=== PATIENT | female | born 1995 ===

== ENCOUNTER 2018-11-05 09:29 | Inpatient (IN) ==
[2018-11-05] MEDS ORDERED: ONDANSETRON 4 MG/2 ML VIAL IV PRN ×2 (09:50→11:36)
[2018-11-05] MEDS ORDERED: MEPERIDINE 50 MG/1 ML VIAL IV PRN (09:50)
[2018-11-05] MEDS ORDERED: LACTATED RINGERS 500 ML IV PRN (09:50)
[2018-11-05] MEDS ORDERED: LACTATED RINGERS 1,000 ML IV SCH (10:00)
[2018-11-05] MEDS ORDERED: ceFAZolin 2,000 MG in PREMIX 1 EACH IV ONE (10:02)
[2018-11-05 10:24] LABS: Basophils % 0.3 % (0.0-0.8); Eosinophils % 0.2 % (0.00-10.9); Hematocrit 37.8 VOL% (35.7-47.0); Hemoglobin 12.2 GM/DL (12.0-16.0); Immature Granulocytes % 0.8 %; Lymphocytes # 1.8 10*3/uL (1.4-4.0); Lymphocytes % 14.2 % (21.3-54.2); Mean Corpuscular HGB Conc 32.3 GM/DL (32-36); Mean Corpuscular Hemoglobin 28 PG (27-34); Mean Corpuscular Volume 87.9 FL (87-102); Mean Platelet Volume 9.9 FL (9.6-12.0); Monocytes # 0.6 10*3/uL (0.11-0.8); Monocytes % 4.8 % (1.7-12.7); Neutrophils # 9.9 10*3/uL (1.4-7.4); Neutrophils % 79.7 % (38.7-73.9); Platelet Count 219 T/CUMM (130-400); Red Cell Distribution Width 15.4 % (9.3-17.3); White Blood Count 12.5 T/CUMM (4-12)
[2018-11-05] MEDS ORDERED: OXYTOCIN 10 UNIT/ML VIAL IM ONE ×2 (10:28→10:45)
[2018-11-05] MEDS ORDERED: hydrOXYzine HCL 25 MG/1 ML VIAL IM PRN (10:28)
[2018-11-05] MEDS ORDERED: CITRIC ACID/SODIUM CITRATE 30 ML UDCUP PO ONE (10:28)
[2018-11-05] MEDS ORDERED: diphenhydrAMINE 50 MG/1 ML VIAL IV PRN (10:28)
[2018-11-05] MEDS ORDERED: PROMETHAZINE 25 MG/1 ML VIAL IM PRN (10:28)
[2018-11-05] MEDS ORDERED: OXYTOCIN/LR 30 UNIT/1,000 ML BAG IV ONE (10:28)
[2018-11-05] MEDS ORDERED: FAMOTIDINE 20 MG/2 ML VIAL IV ONE (10:28)
[2018-11-05] MEDS ORDERED: PHENYLEPHRINE 1 MG/10 ML SYRINGE IV ONE (10:30)
[2018-11-05] MEDS ORDERED: BUPIVACAINE SPINAL 0.75% 2 ML AMP SPINAL ONE (10:31)
[2018-11-05 10:45] LABS: Alanine Aminotransferase 9 U/L (13-56); Albumin 2.3 G/DL (3.4-5.0); Alkaline Phosphatase 120 U/L (45-117); Aspartate Amino Transferase 11 U/L (0-37); Bilirubin,Total < 0.39 MG/DL (0.2-1.0); Blood Urea Nitrogen 8 MG/DL (7-18); Calcium 8.7 MG/DL (8.5-10.1); Glucose 94 MG/DL (74-106); Osmolality,Calculated 274.5 MOS/KG (273-304); Potassium 4.3 MMOL/L (3.5-5.1); Sodium 139 MMOL/L (136-145); Total Protein 6.7 G/DL (6.4-8.3)
[2018-11-05 11:30] LABS: Cord Arterial Blood HCO3 19.3 MMOL/L
[2018-11-05 11:31] LABS: Cord Venous Blood HCO3 25.4 MMOL/L; Cord Venous Blood PCO2 60.8 MMHG
[2018-11-05 11:32] LABS: Cord Venous Blood PO2 11.6 MMHG
[2018-11-05 11:35] LABS: Apearance,Urine CLEAR (Clear); Bilirubin,Urine Negative (Negative); Blood, Urine Negative (Negative); Glucose,Urine (UA) Negative (Negative); Ketones,Urine 5 mg/dL (Negative); Mucus,Urine Occasional /LPF (Occasional); Nitrite,Urine Negative (Negative); Protein,Urine Negative; RBC,Urine <1 /HPF (0-4); Squamous Epithelial Cell,Urine Occasional /HPF (0-10); Urine Color Yellow (Yellow); Urine Specific Gravity 1.014 (1.001-1.035); Urine Urobilinogen < 2.0 EU/DL (0.2-1.0); WBC,Urine <1 /HPF (0-6)
[2018-11-05] MEDS ORDERED: MAGNESIUM HYDROXIDE SUSP 30 ML UDCUP PO PRN (11:36)
[2018-11-05] MEDS ORDERED: RHO(D) IMMUNE GLOBULIN 300 MCG SYRINGE IM ONE (11:36)
[2018-11-05] MEDS ORDERED: ACETAMINOPHEN 325 MG TABLET PO PRN (11:36)
[2018-11-05] MEDS ORDERED: OXYTOCIN/LR 20 UNIT/1,000 ML BAG IV ONE (11:36)
[2018-11-05] MEDS ORDERED: SIMETHICONE CHEW 80 MG TABLET PO PRN (11:36)
[2018-11-05] MEDS ORDERED: fentaNYL 100 MCG/2 ML VIAL ONE (12:18)
[2018-11-05] MEDS ORDERED: MORPHINE 10 MG/10 ML VIAL ONE (12:18)
[2018-11-05] MEDS: ceFAZolin 1,000 MG in SYRINGE 1 EACH IV SCH (17:40)
[2018-11-05 20:02] LABS: Basophils % 0.2 % (0.0-0.8); Eosinophils % 0.4 % (0.00-10.9); Hematocrit 32.7 VOL% (35.7-47.0); Hemoglobin 10.8 GM/DL (12.0-16.0); Immature Granulocytes % 0.8 %; Immature Granulocytes Absolute 0.08 #; Lymphocytes # 1.8 10*3/uL (1.4-4.0); Lymphocytes % 17.7 % (21.3-54.2); Mean Corpuscular Hemoglobin 29 PG (27-34); Mean Corpuscular Volume 87.9 FL (87-102); Mean Platelet Volume 10.5 FL (9.6-12.0); Monocytes # 0.8 10*3/uL (0.11-0.8); Monocytes % 7.8 % (1.7-12.7); Neutrophils # 7.4 10*3/uL (1.4-7.4); Neutrophils % 73.1 % (38.7-73.9); Platelet Count 183 T/CUMM (130-400); Red Blood Count 3.72 MC/CUMM (3.8-5.5); Red Cell Distribution Width 15.2 % (9.3-17.3); White Blood Count 10.1 T/CUMM (4-12)
[2018-11-05] MEDS: DOCUSATE SODIUM 100 MG CAPSULE PO SCH (20:57)
[2018-11-06] MEDS: IBUPROFEN 800 MG TABLET PO PRN ×3 (00:25→17:45)
[2018-11-06] MEDS: ceFAZolin 1,000 MG in SYRINGE 1 EACH IV SCH (01:56)
[2018-11-06 05:27] LABS: Basophils % 0.4 % (0.0-0.8); Eosinophils # 0.1 10*3/uL (0.0-0.87); Hematocrit 32.1 VOL% (35.7-47.0); Hemoglobin 10.1 GM/DL (12.0-16.0); Immature Granulocytes % 0.8 %; Immature Granulocytes Absolute 0.08 #; Lymphocytes # 2.3 10*3/uL (1.4-4.0); Lymphocytes % 22.6 % (21.3-54.2); Mean Corpuscular HGB Conc 31.5 GM/DL (32-36); Mean Corpuscular Hemoglobin 28 PG (27-34); Mean Corpuscular Volume 90.2 FL (87-102); Mean Platelet Volume 9.6 FL (9.6-12.0); Monocytes # 0.7 10*3/uL (0.11-0.8); Monocytes % 6.9 % (1.7-12.7); Neutrophils # 6.9 10*3/uL (1.4-7.4); Neutrophils % 68.3 % (38.7-73.9); Platelet Count 157 T/CUMM (130-400); Red Blood Count 3.56 MC/CUMM (3.8-5.5); Red Cell Distribution Width 15.3 % (9.3-17.3); White Blood Count 10.1 T/CUMM (4-12)
[2018-11-06] MEDS ORDERED: METOCLOPRAMIDE 10 MG TABLET PO SCH (09:00)
[2018-11-06] MEDS: MAGNESIUM HYDROXIDE SUSP 30 ML UDCUP PO SCH ×2 (09:37→21:10)
[2018-11-06] MEDS: MULTIVITAMIN (PRENATAL) TABLET PO SCH (09:37)
[2018-11-06] MEDS: DOCUSATE SODIUM 100 MG CAPSULE PO SCH ×2 (09:38→21:10)
[2018-11-06] MEDS: METOCLOPRAMIDE 10 MG TABLET PO SCH ×2 (09:38→17:46)
[2018-11-06] MEDS: SIMETHICONE CHEW 80 MG TABLET PO SCH ×4 (09:39→21:10)
[2018-11-06] MEDS: LACTATED RINGERS 1,000 ML IV SCH (12:33)
[2018-11-06] MEDS ORDERED: BISACODYL 10 MG SUPP RECTAL PRN (20:59)
[2018-11-07] MEDS: METOCLOPRAMIDE 10 MG TABLET PO SCH ×2 (00:14→08:47)
[2018-11-07] MEDS: oxyCODONE/ACETAMINOPHEN 5-325 MG TABLET PO PRN ×3 (00:14→22:47)
[2018-11-07] MEDS: IBUPROFEN 800 MG TABLET PO PRN ×2 (06:21→23:55)
[2018-11-07] MEDS: MAGNESIUM HYDROXIDE SUSP 30 ML UDCUP PO SCH (09:07)
[2018-11-07] MEDS: MULTIVITAMIN (PRENATAL) TABLET PO SCH (09:41)
[2018-11-07] MEDS: DOCUSATE SODIUM 100 MG CAPSULE PO SCH ×2 (09:41→20:22)
[2018-11-07] MEDS: SIMETHICONE CHEW 80 MG TABLET PO SCH ×4 (10:08→20:22)
[2018-11-08 07:39] VITALS: BP 116/73
[2018-11-08] MEDS: oxyCODONE/ACETAMINOPHEN 5-325 MG TABLET PO PRN (08:39)
[2018-11-08] MEDS: MULTIVITAMIN (PRENATAL) TABLET PO SCH (09:56)
[2018-11-08] MEDS: DOCUSATE SODIUM 100 MG CAPSULE PO SCH (09:56)
[2018-11-08] MEDS: SIMETHICONE CHEW 80 MG TABLET PO SCH ×2 (11:10→13:56)
[2018-11-08] MEDS ORDERED: MEASLES/MUMPS/RUBELLA VACCINE 0.5 ML VIAL SUBCUT ONE ×2 (12:06→12:08)
== END 2018-11-08 13:05 | disposition home or self-care (01) | DRG 540 ==
LOC: N.LDOUT 09:29 → N.LD 09:32 → N.OB 14:15
PROVIDERS: ADMIT Obstetrics & Gynecology; ATTEND Obstetrics & Gynecology
PROC: LDCSECT (ICD-10-PCS; 2018-11-05 10:15)

== ENCOUNTER 2022-09-21 04:34 | Inpatient (IN) ==
[2022-09-21] MEDS ORDERED: MEPERIDINE 50 MG/1 ML VIAL IV PRN (06:14)
[2022-09-21] MEDS ORDERED: ONDANSETRON 4 MG/2 ML VIAL IV PRN ×2 (06:14→18:33)
[2022-09-21 06:28] LABS: Basophils # 0.1 10*3/uL (0.0-0.2); Basophils % 0.6 % (0.0-0.8); Eosinophils % 0.5 % (0.00-10.9); Hematocrit 38.1 VOL% (35.7-47.0); Hemoglobin 12.4 GM/DL (12.0-16.0); Immature Granulocytes % 2.2 %; Immature Granulocytes Absolute 0.17 #; Lymphocytes # 1.7 10*3/uL (1.4-4.0); Lymphocytes % 22.2 % (21.3-54.2); Mean Corpuscular HGB Conc 32.5 GM/DL (32-36); Mean Corpuscular Volume 87.2 FL (87-102); Mean Platelet Volume 10.3 FL (9.6-12.0); Monocytes # 0.4 10*3/uL (0.11-0.8); Monocytes % 4.8 % (1.7-12.7); Neutrophils % 69.7 % (38.7-73.9); Platelet Count 170 T/CUMM (130-400); Red Blood Count 4.37 MC/CUMM (3.8-5.5); Red Cell Distribution Width 15.3 % (9.3-17.3); White Blood Count 7.8 T/CUMM (4-12)
[2022-09-21 06:42] LABS: INR 0.9; PT Patient Result 9.9 SECS (10.1-12.1)
[2022-09-21 06:54] LABS: Alanine Aminotransferase 14 U/L (13-56); Albumin 2.4 G/DL (3.4-5.0); Alkaline Phosphatase 110 U/L (45-117); Aspartate Amino Transferase 20 U/L (0-37); Bilirubin,Total < 0.39 MG/DL (0.20-1.00); Blood Urea Nitrogen 12 MG/DL (7-18); Calcium 9.1 MG/DL (8.5-10.1); Carbon Dioxide 18 MMOL/L (21-32); Chloride 110 MMOL/L (98-107); Glucose 140 MG/DL (74-106); Potassium 4.5 MMOL/L (3.5-5.1); Sodium 136 MMOL/L (136-145); Total Protein 6.7 G/DL (6.4-8.2); Uric Acid 6.6 MG/DL (2.6-6.0)
[2022-09-21] MEDS ORDERED: TRANEXAMIC ACID 1,000 MG in SODIUM CHLORIDE 0.9% 100 ML IV PRN (12:29)
[2022-09-21] MEDS ORDERED: FAMOTIDINE 20 MG/2 ML VIAL IV ONE (12:29)
[2022-09-21] MEDS ORDERED: CITRIC ACID/SODIUM CITRATE 30 ML UDCUP PO ONE (12:29)
[2022-09-21] MEDS ORDERED: OXYTOCIN/LR 20 UNIT/1,000 ML BAG IV ONE ×2 (12:29→18:33)
[2022-09-21] MEDS ORDERED: CLINDAMYCIN INJ 900 MG/50 ML PREMIX IV ONE (12:29)
[2022-09-21] MEDS ORDERED: CARBOPROST TROMETHAMINE 250 MCG/ML AMP IM PRN (12:29)
[2022-09-21] MEDS ORDERED: miSOPROStoL 200 MCG TABLET RECTAL PRN (12:29)
[2022-09-21] MEDS ORDERED: METHYLERGONOVINE 0.2 MG/1 ML AMP IM PRN (12:29)
[2022-09-21] MEDS ORDERED: LACTATED RINGERS 1,000 ML IV SCH ×2 (12:30→19:00)
[2022-09-21 12:58] LABS: Basophils % 0.6 % (0.0-0.8); Eosinophils % 0.6 % (0.00-10.9); Hematocrit 36.8 VOL% (35.7-47.0); Hemoglobin 12.2 GM/DL (12.0-16.0); Immature Granulocytes % 2.1 %; Immature Granulocytes Absolute 0.14 #; Lymphocytes # 1.7 10*3/uL (1.4-4.0); Lymphocytes % 24.8 % (21.3-54.2); Mean Corpuscular HGB Conc 33.2 GM/DL (32-36); Mean Corpuscular Volume 87.2 FL (87-102); Monocytes # 0.3 10*3/uL (0.11-0.8); Monocytes % 4.8 % (1.7-12.7); Neutrophils % 67.1 % (38.7-73.9); Platelet Count 166 T/CUMM (130-400); Red Blood Count 4.22 MC/CUMM (3.8-5.5); Red Cell Distribution Width 15.6 % (9.3-17.3); White Blood Count 6.8 T/CUMM (4-12)
[2022-09-21] MEDS ORDERED: OXYTOCIN/LR 30 UNIT/1,000 ML BAG IV ONE (13:43)
[2022-09-21] MEDS ORDERED: OXYTOCIN 10 UNIT/ML VIAL IM ONE (13:43)
[2022-09-21] MEDS ORDERED: ACETAMINOPHEN INJ 1,000 MG/100 ML VIAL IV ONE (16:55)
[2022-09-21] MEDS ORDERED: buprenorphine HCL 0.3 MG/ML VIAL ONE (16:55)
[2022-09-21] MEDS ORDERED: PHENYLEPHRINE 1 MG/10 ML SYRINGE IV ONE ×3 (16:55→17:43)
[2022-09-21] MEDS ORDERED: ONDANSETRON 4 MG/2 ML VIAL ONE (16:55)
[2022-09-21] MEDS ORDERED: KETOROLAC 30 MG/1 ML VIAL ONE (16:55)
[2022-09-21 18:02] LABS: Cord Arterial Blood HCO3 17.8 MMOL/L
[2022-09-21 18:08] LABS: Cord Venous Blood HCO3 19.2 MMOL/L; Cord Venous Blood PCO2 56.2 MMHG; Cord Venous Blood PO2 22.1
[2022-09-21] MEDS ORDERED: GLUCAGON 1 MG VIAL IM PRN (18:33)
[2022-09-21] MEDS ORDERED: SIMETHICONE CHEW 80 MG TABLET PO PRN (18:33)
[2022-09-21] MEDS ORDERED: RHO(D) IMMUNE GLOBULIN 300 MCG SYRINGE IM ONE (18:33)
[2022-09-21] MEDS ORDERED: ACETAMINOPHEN 325 MG TABLET PO PRN (18:33)
[2022-09-21] MEDS ORDERED: DEXTROSE 10% 250 ML BAG IV PRN (18:38)
[2022-09-22] MEDS: INSULIN REGULAR 100 UNIT/ML SUBCUT SCH ×4 (00:16→19:15)
[2022-09-22 01:12] LABS: Basophils % 0.4 % (0.0-0.8); Eosinophils # 0.1 10*3/uL (0.0-0.87); Eosinophils % 0.7 % (0.00-10.9); Hematocrit 33.3 VOL% (35.7-47.0); Hemoglobin 10.9 GM/DL (12.0-16.0); Immature Granulocytes % 0.8 %; Immature Granulocytes Absolute 0.07 #; Lymphocytes # 1.9 10*3/uL (1.4-4.0); Lymphocytes % 20.7 % (21.3-54.2); Mean Corpuscular HGB Conc 32.7 GM/DL (32-36); Mean Corpuscular Volume 87.6 FL (87-102); Mean Platelet Volume 9.9 FL (9.6-12.0); Monocytes # 0.7 10*3/uL (0.11-0.8); Monocytes % 7.5 % (1.7-12.7); Neutrophils % 69.9 % (38.7-73.9); Platelet Count 141 T/CUMM (130-400); Red Cell Distribution Width 15.2 % (9.3-17.3); White Blood Count 9.2 T/CUMM (4-12)
[2022-09-22] MEDS: DOCUSATE SODIUM 100 MG CAPSULE PO SCH ×3 (01:49→22:51)
[2022-09-22] MEDS: ACETAMINOPHEN 500 MG TABLET PO SCH ×3 (01:50→22:00)
[2022-09-22] MEDS: KETOROLAC 30 MG/1 ML VIAL IV SCH ×2 (02:14→10:05)
[2022-09-22 09:15] LABS: Basophils % 0.4 % (0.0-0.8); Eosinophils # 0.1 10*3/uL (0.0-0.87); Eosinophils % 1.2 % (0.00-10.9); Hematocrit 30.7 VOL% (35.7-47.0); Hemoglobin 9.8 GM/DL (12.0-16.0); Immature Granulocytes % 1.1 %; Immature Granulocytes Absolute 0.09 #; Lymphocytes % 24.2 % (21.3-54.2); Mean Corpuscular HGB Conc 31.9 GM/DL (32-36); Mean Platelet Volume 9.8 FL (9.6-12.0); Monocytes # 0.5 10*3/uL (0.11-0.8); Monocytes % 6.1 % (1.7-12.7); Platelet Count 157 T/CUMM (130-400); Red Blood Count 3.41 MC/CUMM (3.8-5.5); Red Cell Distribution Width 15.7 % (9.3-17.3); White Blood Count 8.4 T/CUMM (4-12)
[2022-09-22] MEDS ORDERED: ceFAZolin 2,000 MG/50 ML DUPLEX IV ONE (09:30)
[2022-09-22] MEDS: MULTIVITAMIN (PRENATAL) TABLET PO SCH (10:09)
[2022-09-22] MEDS ORDERED: FUROSEMIDE 20 MG TABLET ONE ×2 (14:56→21:43)
[2022-09-22] MEDS: FUROSEMIDE 40 MG TABLET PO SCH ×2 (14:58→22:52)
[2022-09-22] MEDS: IBUPROFEN 800 MG TABLET PO PRN (16:37)
[2022-09-22] MEDS: MAGNESIUM HYDROXIDE SUSP 30 ML UDCUP PO PRN (22:50)
[2022-09-23] MEDS: INSULIN REGULAR 100 UNIT/ML SUBCUT SCH ×2 (00:16→06:30)
[2022-09-23] MEDS: KETOROLAC 30 MG/1 ML VIAL IV SCH (02:00)
[2022-09-23] MEDS: IBUPROFEN 800 MG TABLET PO PRN ×3 (03:43→23:14)
[2022-09-23] MEDS: ACETAMINOPHEN 500 MG TABLET PO SCH (06:24)
[2022-09-23] MEDS: MULTIVITAMIN (PRENATAL) TABLET PO SCH (10:02)
[2022-09-23] MEDS: DOCUSATE SODIUM 100 MG CAPSULE PO SCH ×2 (10:02→20:20)
[2022-09-23] MEDS: FUROSEMIDE 40 MG TABLET PO SCH (10:03)
[2022-09-24 08:37] VITALS: BP 133/75
[2022-09-24] MEDS: MAGNESIUM HYDROXIDE SUSP 30 ML UDCUP PO PRN (09:08)
[2022-09-24] MEDS: MULTIVITAMIN (PRENATAL) TABLET PO SCH (09:08)
[2022-09-24] MEDS: DOCUSATE SODIUM 100 MG CAPSULE PO SCH (09:08)
== END 2022-09-24 10:45 | disposition home or self-care (01) | DRG 540 ==
LOC: N.LDOUT 04:34 → N.LD 04:36 → N.OB 09-22 00:21
PROVIDERS: ADMIT Obstetrics & Gynecology; ATTEND Obstetrics & Gynecology
PROC: LDCSECT (ICD-10-PCS; 2022-09-21 16:00)